=== PATIENT | female | born 1985 | race Caucasian/White ===

== ENCOUNTER 2016-03-12 01:16 | Inpatient (IN) | payer OTHER ==
[2016-03-12] MEDS ORDERED: Nalbuphine* 20 MG/ML 1 ML VIAL IM ONE (04:19)
[2016-03-12] MEDS ORDERED: Promethazine INJ(RESTRICTED)* 25 MG/ML 1 ML VIAL IM ONE (04:19)
[2016-03-12] MEDS ORDERED: Promethazine INJ(RESTRICTED)* 25 MG/ML 1 ML VIAL ONE (04:24)
[2016-03-12] MEDS ORDERED: Nalbuphine* 20 MG/ML 1 ML VIAL ONE (04:24)
[2016-03-12 08:43] LABS: Hematocrit 37 % (35-47); Mean Corpuscular HGB Conc 33 g/dl (31-36); Mean Corpuscular Hemoglobin 27 pg (27-31); Mean Corpuscular Volume 83 fL (80-97); Mean Platelet Volume 7 um3 (7.4-10.4); Red Blood Count 4.42 10^6/ul (4.0-5.4); Red Cell Distribution Width 15 % (10.5-15); White Blood Count 11.6 10^3/ul (3.5-10.8)
[2016-03-12] MEDS ORDERED: OBEPIDURAL* 250 ML ONE (08:43)
[2016-03-12] MEDS ORDERED: Famotidine TAB* 20 MG PO PRN (09:13)
[2016-03-12] MEDS ORDERED: Phenylephrine IV* 40 MCG/ML 10 ML SYRINGE IV PUSH PRN (09:13)
[2016-03-12] MEDS ORDERED: EPHEDrine (Pressors)* 50 MG/ML VIAL IV PUSH PRN (09:13)
[2016-03-12] MEDS ORDERED: Sodium Citrate/Citric Acid* 15 ML UDC PO PRN (09:13)
[2016-03-12] MEDS ORDERED: Oxytocin in LR* 20 UNITS/1,000 ML BAG IVPB ONE (11:09)
[2016-03-12] MEDS ORDERED: Oxytocin in LR* 20 UNITS/1,000 ML BAG IVPB SCH ×2 (12:00→18:00)
[2016-03-12] MEDS: OBEPIDURAL* 250 ML EPIDURAL SCH (15:44)
[2016-03-12] MEDS ORDERED: Mineral Oil Sterile, TOPICAL* 25 ML BTL ONE (16:06)
[2016-03-12] MEDS ORDERED: oxyCODONE/Acetamin 5/325 MG* TAB PO PRN (17:40)
[2016-03-12] MEDS ORDERED: Acetaminophen TAB* 325 MG PO PRN (17:40)
[2016-03-12] MEDS: Witch Hazel PAD* JAR TOPICAL PRN (18:29)
[2016-03-12] MEDS: Dibucaine 1% 28.35 GM TUBE PR PRN (18:29)
[2016-03-12] MEDS: Ibuprofen TAB* 600 MG PO PRN (18:29)
[2016-03-13] MEDS: Docusate CAP* 100 MG PO SCH ×4 (01:49→20:17)
[2016-03-13] MEDS: Ibuprofen TAB* 600 MG PO PRN ×4 (01:49→20:17)
[2016-03-13 07:39] LABS: Hematocrit 31 % (35-47); Hemoglobin 10.2 g/dl (12.0-16.0); Mean Corpuscular HGB Conc 33 g/dl (31-36); Mean Corpuscular Hemoglobin 27 pg (27-31); Mean Corpuscular Volume 83 fL (80-97); Mean Platelet Volume 7 um3 (7.4-10.4); Red Blood Count 3.77 10^6/ul (4.0-5.4); Red Cell Distribution Width 15 % (10.5-15)
[2016-03-13] MEDS: Ferrous Gluconate TAB* 324 MG TAB PO SCH (19:19)
[2016-03-13] MEDS ORDERED: RHO D Immune Globulin (HUMAN)* 300 MCG = 1,500 I.U. INJ IM ONE (20:03)
[2016-03-14] MEDS: Ibuprofen TAB* 600 MG PO PRN ×2 (02:36→08:47)
[2016-03-14] MEDS: OBEPIDURAL* 250 ML EPIDURAL SCH (05:17)
[2016-03-14] MEDS: Ferrous Gluconate TAB* 324 MG TAB PO SCH (05:17)
[2016-03-14 08:05] VITALS: BP 119/78
[2016-03-14] MEDS: Docusate CAP* 100 MG PO SCH (08:47)
[2016-03-14] MEDS: Dibucaine 1% 28.35 GM TUBE PR PRN (08:48)
[2016-03-14] MEDS: Witch Hazel PAD* JAR TOPICAL PRN (08:48)
== END 2016-03-14 11:42 | disposition home or self-care (01) | DRG 560 ==
LOC: MCHOBOUT 01:16 → MCHOB 01:52
PROVIDERS: ADMIT Midwife; ATTEND Nurse Practitioner
PROC: 10907ZC Drainage of Amniotic Fluid, Therapeutic from Products of Conception, Via Natural or Artificial Opening (ICD-10-PCS; principal; 2016-03-12)
PROC: 10E0XZZ Delivery of Products of Conception, External Approach (ICD-10-PCS; 2016-03-12)
PROC: 0W8NXZZ Division of Female Perineum, External Approach (ICD-10-PCS; 2016-03-12)
DX: O48.0 Post-term pregnancy (principal); Z37.0 Single live birth; Z3A.40 40 weeks gestation of pregnancy
CPT/HCPCS: 36415; 85025; 85461; 86850; 86900; 86901; A9270-GY; J2300; J2550; J2790

== ENCOUNTER 2017-09-22 12:28 | Emergency (ER) | payer BC, OTHER ==
[2017-09-22 12:50] VITALS: BP 136/69
[2017-09-22] MEDS ORDERED: Ketorolac INJ* 60 MG/2 ML VIAL IM ONE (13:01)
--- NOTE | 2017-09-22 13:01 | UC ---
Abdominal Pain Female HPI - HPI Summary HPI Summary: Pt is a 32 y/o F c/o L flank pain radiating to L abdomen onset at 0200. Pain ranked as an 8/10 and described as "excruciating". Has PMHx: Kidney stones 2 years ago, states today's sx are similar. Associated Sx: nausea onset this AM, vaginal itching, dysuria. 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 Pt thinks she had a UTI 9 days with sx semi-resolving. - History of Current Complaint Chief Complaint: UCGU Stated Complaint: BACK/ABD PAIN Time Seen by Provider: 09/22/17 12:43 Hx Obtained From: Patient, Medical Records Hx Last Menstrual Period: 08/24/17 Onset/Duration: Sudden Onset - 0200 this date, Lasting Hours, Still Present Timing: Constant Severity Currently: Moderate Pain Intensity: 6 Pain Scale Used: 0-10 Numeric Location: Other - L flank Radiates: Yes Radiates to: Other - L abd Character: Other - Heavy and "excruciating" Associated Signs and Symptoms: Positive: Nausea, Other: - vaginal itching, dysuria Allergies/Adverse Reactions: Allergies Allergy/AdvReac Type Severity Reaction Status Date / Time soy Allergy Hives/Diff. Verified 09/22/17 13:41 Breathing/I tching PMH/Surg Hx/FS Hx/Imm Hx Previously Healthy: No Endocrine History: Other Other Endocrine History: neg: DM GI/ History: Kidney Stones - Surgical History Surgical History: None - Family History Family History: Neg: GI problems - Social History Occupation: Employed Part-time Lives: With Family Alcohol Use: Rare Alcohol Amount: 2 glasses wine Substance Use Type: None Smoking Status (MU): Never Smoked Tobacco - Immunization History Most Recent Influenza Vaccination: fall 2015 Most Recent Tetanus Shot: 2016 Most Recent Pneumonia Vaccination: never Review of Systems Gastrointestinal: Abdominal Pain - L Flank radiating to L abd, Nausea Genitourinary: Dysuria, Vaginal/Penile Itching All Other Systems Reviewed And Are Negative: Yes Physical Exam - Summary Physical Exam Summary: VITAL SIGNS: Reviewed. GENERAL: Patient is a well-developed and nourished female. Patient is not in any acute respiratory distress. Pt is distressed secondary to pain. HEAD AND FACE: Normocephalic EYES: PERRLA, EOMI x 2. EARS: Hearing grossly intact. MOUTH: Oropharynx within normal limits. NECK: Supple, trachea is midline, no adenopathy, no JVD, no carotid bruit. CHEST: Symmetric, no tenderness at palpation LUNGS: Clear to auscultation bilaterally. No wheezing or crackles. CVS: Regular rate and rhythm, S1 and S2 present, no murmurs or gallops appreciated. ABDOMEN: Soft, non-tender. Bowel sounds are normal. No abdominal abnormal pulsations. BACK: L CVA tenderness EXTREMITIES: Full ROM in all major joints, no edema, no cyanosis or clubbing. NEURO: Alert and oriented x 3. No acute neurological deficits. Speech is normal and follows commands. SKIN: Dry and warm Triage Information Reviewed: Yes Vital Signs: Initial Vital Signs Temp 99.2 F 09/22/17 12:39 Pulse 74 09/22/17 12:39 Resp 18 09/22/17 12:39 BP 136/69 09/22/17 12:39 Pulse Ox 100 09/22/17 12:39 Vital Signs Reviewed: Yes Abd Pain Female Course/Dx - Course Course Of Treatment: Patient is a 32-year-old female with left flank pain. The patient has history of kidney stones. The pain is 8 out of 10. The patient is here in town for the pain and she will be going to the emergency department for further workup and management I will rule out kidney stone versus pyelonephritis. Patient declined ambulance transport. The patient was found to have increased BP in UC. The patient will follow up with PCP for better control of BP. - Differential Dx/Diagnosis Provider Diagnoses: Flank pain rule out kidney stones versus pyelonephritis Discharge - Sign-Out/Discharge Documenting (check all that apply): Patient Departure - D/C - Discharge Plan Condition: Stable Disposition: HOME-RECOMMEND TO ED Patient Education Materials: Flank Pain (ED) Referrals: No Primary Care Phys,NOPCP [Primary Care Provider] - [facility] [Outside] Additional Instructions: Patient will be discharged to the emergency department for further workup and management. She declined ambulance transport. FOLLOW UP WITH YOUR PRIMARY CARE PROVIDER WITHIN ONE WEEK FOR HIGH BLOOD PRESSURE NOTED TODAY. RETURN TO Urgent Care or ED FOR ANY WORSENING OR NEW SYMPTOMS.
== END 2017-09-22 13:12 | disposition home health service (06) ==
LOC: UCEAST 12:28
DX: M54.5 Low back pain (principal); R11.0 Nausea; L29.2 Pruritus vulvae; R30.0 Dysuria; Z87.442 Personal history of urinary calculi; Z87.440 Personal history of urinary (tract) infections
CPT/HCPCS: 81003; 84702; 87077; 87086; 87186; 96372; 99202; G0463; J1885

== ENCOUNTER 2017-09-22 13:33 | Emergency (ER) | payer BC ==
[2017-09-22 14:31] LABS: Urine Appearance Clear; Urine Blood 2+ (Negative); Urine Color Straw; Urine Ketones Negative (Negative); Urine Protein Negative (Negative); Urine Red Blood Cell Absent (Absent); Urine Specific Gravity 1.002 (1.010-1.030); Urine Urobilinogen Negative (Negative); Urine White Blood Cell Trace(0-5/hpf) (Absent)
--- NOTE | 2017-09-22 15:31 | RAD ---
INDICATION: LEFT side flank pain. Kidney stone protocol. History of urolithiasis. COMPARISON: February 26, 2014 CT TECHNIQUE: Multidetector CT images were obtained from the lung bases to the ischial tuberosities. Evaluation of the viscera is limited without IV contrast. Multiplanar reformation. REPORT: Unremarkable visualized inferior thorax. The unenhanced liver, gallbladder, pancreas, and spleen are unremarkable. No CT abnormality of the unopacified upper GI, small bowel, retrocecal appendix, or colon. Negative for ascites, free air, or significant hernias. Normal adrenal glands. 2 mm calyceal stone upper pole RIGHT kidney. A few punctate 1 -- 2 mm stones at the lower pole calyces of the LEFT kidney. 0.3 cm maximum dimension calcification at the RIGHT pelvis may represent a distal RIGHT ureteral stone approximate 3 cm from the ureterovesicular junction however assessment is limited due to paucity of retroperitoneal fat in this patient. The calcification is new compared with the 2013 exam. The differential includes a phlebolith. Negative for hydronephrosis. Unremarkable largely decompressed urinary bladder as well as the anteverted uterus and bilateral adnexal regions. Negative for lymphadenopathy. Normal diameter abdominal aorta and iliac arteries. Physiologic distention of the IVC. Negative for suspicious osseous lesions. IMPRESSION: #. Normal appendix documented. #. Small nonobstructing calyceal stones at both kidneys. Negative for hydronephrosis. #. 0.3 cm maximum dimension calcification at the RIGHT pelvis may represent a nonobstructing distal ureteral stone or phlebolith. The finding is new compared with the 2014 exam.
[2017-09-22 16:49] LABS: ABS Basophils 0.1 10^3/ul (0-0.2); ABS Eosinophils 0.2 10^3/ul (0-0.6); ABS Lymphocytes 3.2 10^3/ul (1.0-4.8); ABS Monocytes 0.9 10^3/ul (0-0.8); ABS Neutrophils 8.8 10^3/ul (1.5-7.7); ABS Nucleated RBC 0 10^3/ul; Eosinophil % 1.3 % (0-6); Hematocrit 42 % (35-47); Hemoglobin 14.5 g/dl (12.0-16.0); Lymphocyte % 24.3 % (25-47); Mean Corpuscular HGB Conc 35 g/dl (31-36); Mean Corpuscular Hemoglobin 32 pg (27-31); Mean Corpuscular Volume 91 fL (80-97); Nucleated Red Blood Cells % 0; Platelet Count 314 10^3/ul (150-450); Red Blood Count 4.61 10^6/ul (4.00-5.40); Red Cell Distribution Width 13 % (10.5-15); White Blood Count 13.1 10^3/ul (3.5-10.8)
[2017-09-22 17:06] LABS: EGFR Non-African American 75.4 (>60)
--- NOTE | 2017-09-22 17:31 | ED ---
Back Pain - HPI Summary HPI Summary: This patient is a 32 year old F presenting to [facility] with a chief complaint of left sided, severe, sharp plank pain that has wrapped around to abd since last night 09/21/17. Pt went to , and she thinks sx from kidney stone. Pt endorses pain improved after medication, but is coming back and gaining acuity now. PMHx kidney stones. - History of Current Complaint Chief Complaint: EDFlankPain Stated Complaint: FLANK PAIN Time Seen by Provider: 09/22/17 17:07 Hx Obtained From: Patient Hx Last Menstrual Period: 08/24/17 Onset/Duration: Gradual Onset Onset/Duration: Started Hours Ago Timing: Constant Severity Initially: Severe Severity Currently: Mild Pain Intensity: 2 Pain Scale Used: 0-10 Numeric Character: Sharp Aggravating Symptom(s): Movement Alleviating Symptom(s): OTC Meds Associated Signs And Symptoms: Positive: Abdominal Pain, Flank Pain. Negative: Fever - Allergies/Home Medications Allergies/Adverse Reactions: Allergies Allergy/AdvReac Type Severity Reaction Status Date / Time soy Allergy Hives/Diff. Verified 09/22/17 13:41 Breathing/I tching PMH/Surg Hx/FS Hx/Imm Hx Endocrine/Hematology History: Denies: Hx Diabetes, Hx Systemic Lupus Erythematosus Cardiovascular History: Denies: Hx Congestive Heart Failure, Hx Hypertension History: Reports: Hx Kidney Stones, Hx Renal Disease - KIDNEY STONES Denies: Hx Dialysis Musculoskeletal History: Denies: Hx Rheumatoid Arthritis - Cancer History Hx Chemotherapy: No Infectious Disease History: No Infectious Disease History: Denies: Traveled Outside the [place] in Last 30 Days - Social History Alcohol Use: Rare Alcohol Amount: 2 glasses wine Substance Use Type: Reports: None Smoking Status (MU): Never Smoked Tobacco Review of Systems Negative: Fever Positive: Abdominal Pain Positive: flank pain, pain Positive: Myalgia - BACK PAIN All Other Systems Reviewed And Are Negative: Yes Physical Exam - Summary Physical Exam Summary: Appearance: The patient is well-nourished in no apparent distress and in no acute pain. Skin: The skin is warm and dry and skin color reflects adequate perfusion. HEENT: The head is normocephalic and atraumatic. The pupils are equal and reactive. The conjunctivae are clear and without drainage. Nares are patent and without drainage. Mouth reveals moist mucous membranes and the throat is without erythema and exudate. The external ears are intact. The ear canals are patent and without drainage. The tympanic membranes are intact. Neck: The neck is supple with full range of motion and non-tender. There are no carotid bruits. There is no neck vein distension. Respiratory: Chest is non-tender. Lungs are clear to auscultation and breath sounds are symmetrical and equal. Cardiovascular: Heart is regular rate and rhythm. There is no murmur or rub auscultated. There is no peripheral edema and pulses are symmetrical and equal. Abdomen: The abdomen is soft and non-tender. There are normal bowel sounds heard in all four quadrants and there is no organomegaly palpated. Musculoskeletal: There left CVA tenderness noted. Extremities are non-tender with full range of motion. There is good capillary refill. There is no peripheral edema or calf tenderness elicited. Neurological: Patient is alert and oriented to person, place and time. The patient has symmetrical motor strength in all four extremities. Cranial nerves are grossly intact. Deep tendon reflexes are symmetrical and equal in all four extremities. Psychiatric: The patient has an appropriate affect and does not exhibit any anxiety or depression. Triage Information Reviewed: Yes Vital Signs On Initial Exam: Initial Vitals Temp Pulse Resp BP Pulse Ox 97.6 F 66 15 125/89 100 09/22/17 13:38 09/22/17 13:38 09/22/17 13:38 09/22/17 13:38 09/22/17 13:38 Vital Signs Reviewed: Yes Diagnostics - Vital Signs Vital Signs Temp Pulse Resp BP Pulse Ox 09/22/17 15:37 98.6 F 58 18 126/77 99 09/22/17 13:38 97.6 F 66 15 125/89 100 - Laboratory Lab Results: Lab Results 09/22/17 09/22/17 09/22/17 Range/Units 14:01 16:39 16:39 WBC 13.1 H (3.5-10.8) 10^3/ul RBC 4.61 (4.00-5.40) 10^6/ul Hgb 14.5 (12.0-16.0) g/dl Hct 42 (35-47) % MCV 91 (80-97) fL MCH 32 H (27-31) pg MCHC 35 (31-36) g/dl RDW 13 (10.5-15) % Plt Count 314 (150-450) 10^3/ul MPV 7.0 L (7.4-10.4) um3 Neut % (Auto) 66.6 (38-83) % Lymph % (Auto) 24.3 L (25-47) % [place] % (Auto) 7.0 (0-7) % Eos % (Auto) 1.3 (0-6) % Baso % (Auto) 0.8 (0-2) % Absolute Neuts (auto) 8.8 H (1.5-7.7) 10^3/ul Absolute Lymphs (auto) 3.2 (1.0-4.8) 10^3/ul Absolute Monos (auto) 0.9 H (0-0.8) 10^3/ul Absolute Eos (auto) 0.2 (0-0.6) 10^3/ul Absolute Basos (auto) 0.1 (0-0.2) 10^3/ul Absolute Nucleated RBC 0 10^3/ul Nucleated RBC % 0 Sodium 138 (135-145) mmol/L Potassium 4.0 (3.5-5.0) mmol/L Chloride 102 (101-111) mmol/L Carbon Dioxide 29 (22-32) mmol/L Anion Gap 7 (2-11) mmol/L BUN 12 (6-24) mg/dL Creatinine 0.88 (0.51-0.95) mg/dL Est GFR ( Amer) 91.3 (>60) Est GFR (Non-Af Amer) 75.4 (>60) BUN/Creatinine Ratio 13.6 (8-20) Glucose 94 (70-100) mg/dL Lactic Acid (0.5-2.0) mmol/L Calcium 9.4 (8.6-10.3) mg/dL Total Bilirubin 0.50 (0.2-1.0) mg/dL AST 15 (13-39) U/L ALT 9 (7-52) U/L Alkaline Phosphatase 68 (34-104) U/L C-Reactive Protein < 1.00 (<8.01) mg/L Total Protein 7.2 (6.4-8.9) g/dL Albumin 4.3 (3.2-5.2) g/dL Globulin 2.9 (2-4) g/dL Albumin/Globulin Ratio 1.5 (1-3) Beta HCG, Quant < 0.60 mIU/mL Urine Color Straw Urine Appearance Clear Urine pH 6.0 (5-9) Ur Specific [place] 1.002 L (1.010-1.030) Urine Protein Negative (Negative) Urine Ketones Negative (Negative) Urine Blood 2+ A (Negative) Urine Nitrate Negative (Negative) Urine Bilirubin Negative (Negative) Urine Urobilinogen Negative (Negative) Ur Leukocyte Esterase Trace A (Negative) Urine WBC (Auto) Trace(0-5/hpf) (Absent) Urine RBC (Auto) Absent (Absent) Ur Squamous Epith Cells Present A (Absent) Urine Bacteria 1+ A (Absent) Urine Glucose Negative (Negative) 09/22/17 Range/Units 16:39 WBC (3.5-10.8) 10^3/ul RBC (4.00-5.40) 10^6/ul Hgb (12.0-16.0) g/dl Hct (35-47) % MCV (80-97) fL MCH (27-31) pg MCHC (31-36) g/dl RDW (10.5-15) % Plt Count (150-450) 10^3/ul MPV (7.4-10.4) um3 Neut % (Auto) (38-83) % Lymph % (Auto) (25-47) % [place] % (Auto) (0-7) % Eos % (Auto) (0-6) % Baso % (Auto) (0-2) % Absolute Neuts (auto) (1.5-7.7) 10^3/ul Absolute Lymphs (auto) (1.0-4.8) 10^3/ul Absolute Monos (auto) (0-0.8) 10^3/ul Absolute Eos (auto) (0-0.6) 10^3/ul Absolute Basos (auto) (0-0.2) 10^3/ul Absolute Nucleated RBC 10^3/ul Nucleated RBC % Sodium (135-145) mmol/L Potassium (3.5-5.0) mmol/L Chloride (101-111) mmol/L Carbon Dioxide (22-32) mmol/L Anion Gap (2-11) mmol/L BUN (6-24) mg/dL Creatinine (0.51-0.95) mg/dL Est GFR ( Amer) (>60) Est GFR (Non-Af Amer) (>60) BUN/Creatinine Ratio (8-20) Glucose (70-100) mg/dL Lactic Acid 0.6 (0.5-2.0) mmol/L Calcium (8.6-10.3) mg/dL Total Bilirubin (0.2-1.0) mg/dL AST (13-39) U/L ALT (7-52) U/L Alkaline Phosphatase (34-104) U/L C-Reactive Protein (<8.01) mg/L Total Protein (6.4-8.9) g/dL Albumin (3.2-5.2) g/dL Globulin (2-4) g/dL Albumin/Globulin Ratio (1-3) Beta HCG, Quant mIU/mL Urine Color Urine Appearance Urine pH (5-9) Ur Specific [place] (1.010-1.030) Urine Protein (Negative) Urine Ketones (Negative) Urine Blood (Negative) Urine Nitrate (Negative) Urine Bilirubin (Negative) Urine Urobilinogen (Negative) Ur Leukocyte Esterase (Negative) Urine WBC (Auto) (Absent) Urine RBC (Auto) (Absent) Ur Squamous Epith Cells (Absent) Urine Bacteria (Absent) Urine Glucose (Negative) Result Diagrams: 09/22/17 16:39 09/22/17 16:39 Lab Statement: Any lab studies that have been ordered have been reviewed, and results considered in the medical decision making process. - CT A/P CT Interpretation: Positive (See Comments) CT Interpretation Completed By: Radiologist - #. Normal appendix documented. # . Small nonobstructing calyceal stones at both kidneys. Negative for hydronephrosis. #. 0.3 cm maximum dimension calcification at the RIGHT pelvis may represent a nonobstructing distal ureteral stone or phlebolith. The finding is new compared with the [address] Lynch has reviewed this report. Back Pain Course/Dx - Course Course Of Treatment: Ms. Marin presented with several hours of left flank pain. She went to the [facility] was severe pain and was given a shot of Toradol and presents with improved pain. CT shows a small left UVJ stone that is not obstructing and her UA is equivocal. For that reason I will give her antibiotics as well as standard treatment for kidney stone and discharged her in stable condition. - Diagnoses Provider Diagnoses: Kidney stone Discharge - Sign-Out/Discharge Documenting (check all that apply): Patient Departure - discharge - Discharge Plan Condition: Stable Disposition: HOME Prescriptions: HYDROcodone/ACETAMIN 5-325 MG* [[place] 5-325 TAB*] 1 tab PO Q6H PRN #20 tab MDD 4 PRN Reason: Pain Nitrofurantoin Monohyd/M-Cryst [Macrobid 100 mg Capsule] 100 mg PO BID #10 cap Tamsulosin CAP* [Flomax CAP*] 0.4 mg PO DAILY #7 cap Patient Education Materials: Kidney Stones (ED) Referrals: Iggy Arias MD [Medical Doctor] - 3 Days Additional Instructions: RETURN TO EMERGENCY DEPARTMENT FOR ANY NEW OR WORSENING SYMPTOMS. - Billing Disposition and Condition Condition: STABLE Disposition: Home
[2017-09-22 17:39] VITALS: BP 118/69
== END 2017-09-22 17:38 | disposition home or self-care (01) ==
LOC: ED 13:33
DX: N20.0 Calculus of kidney (principal); Z87.442 Personal history of urinary calculi
CPT/HCPCS: 36415; 74176; 80053; 81003; 81015; 83605; 84702; 85025; 86140; 99283

== ENCOUNTER 2017-11-09 15:57 | Emergency (ER) | payer BC ==
[2017-11-09 16:30] VITALS: BP 145/98
--- NOTE | 2017-11-09 17:04 | UC ---
Respiratory Complaint HPI - HPI Summary HPI Summary: 32 year old female female presents with 3 day history of productive cough for thick yellow sputum. Associated with some mild SOB, chest wall and abdominal tenderness with coughing. Denies fever, chills, ear pain, ear drainage, nasal congestion, yellow nasal drainage, sinus pressure, post-nasal drip, sore throat , abdominal pain, nausea, vomiting, or diarrhea. History of Crohn's managed with Humira. - History of Current Complaint Chief Complaint: UCRespiratory Stated Complaint: URI Time Seen by Provider: 11/09/17 16:47 Hx Obtained From: Patient Hx Last Menstrual Period: one week ago ?: No Onset/Duration: Gradual Onset Severity Currently: Moderate Pain Intensity: 5 Character: Cough: Productive, Sputum Description: - Thick yellow Aggravating Factors: Deep Breaths Alleviating Factors: Nothing Associated Signs And Symptoms: Positive: Dyspnea - Mild, URI, Nasal Congestion, Hoarseness, Sinus Discomfort. Negative: Fever, Chills, Wheezing, Hemoptysis, Dizziness, Calf Pain, Calf Swelling, Edema - Allergies/Home Medications Allergies/Adverse Reactions: Allergies Allergy/AdvReac Type Severity Reaction Status Date / Time soy Allergy Hives/Diff. Verified 11/09/17 16:05 Breathing/I tching Home Medications: Home Medications Adalimumab [Humira] 40 mg INJ SEE INSTRUCTIONS 11/09/17 [History Confirmed 11/09] PMH/Surg Hx/FS Hx/Imm Hx GI/ History: Other Other GI/ History: Crohn's disease - Surgical History Surgical History: Yes - T&A - Family History Known Family History: Positive: Other Family History: Noncontributory - Social History Occupation: Employed Full-time Lives: With Family Alcohol Use: Occasionally Alcohol Amount: 2 glasses wine Substance Use Type: None Smoking Status (MU): Never Smoked Tobacco - Immunization History Most Recent Influenza Vaccination: fall 2015 Most Recent Tetanus Shot: 2016 Most Recent Pneumonia Vaccination: never Review of Systems Constitutional: Negative Skin: Negative Eyes: Negative ENT: Negative Respiratory: Shortness Of Breath, Cough Cardiovascular: Negative Gastrointestinal: Negative Is Patient Immunocompromised?: Yes All Other Systems Reviewed And Are Negative: Yes Physical Exam Triage Information Reviewed: Yes Appearance: Well-Appearing, No Pain Distress, Well-Nourished Vital Signs: Initial Vital Signs Temp 98.4 F 08/29/18 16:01 Pulse 76 11/09/17 16:01 Resp 18 11/09/17 16:01 BP 145/98 11/09/17 16:01 Pulse Ox 99 11/09/17 16:01 Vital Signs Reviewed: Yes Eyes: Positive: Conjunctiva Clear. Negative: Discharge ENT: Positive: Hearing grossly normal, Pharyngeal erythema - Mild with post- nasal drip. Tonsils surgically absent., TMs normal Neck: Positive: Supple, Nontender, No Lymphadenopathy Respiratory: Positive: Lungs clear, Normal breath sounds, No respiratory distress, No accessory muscle use Cardiovascular: Positive: RRR, No Murmur Neurological: Positive: Alert Skin Exam: Normal UC Diagnostic Evaluation - Laboratory O2 Sat by Pulse Oximetry: 99 Respiratory Course/Dx - Course Course Of Treatment: 32-year-old female presenting with a three-day history of occasionally productive cough for yellow sputum. Is associated with some mild chest wall and abdominal muscular pain especially with the cough and deep breath. Afebrile. She denies any other URI symptoms. Her symptoms are likely a viral bronchitis however patient is on Humira for Crohn's disease therefore I' m electing to cover her with azithromycin for potential bacterial infection. Also recommend symptomatic treatment and will provide her with a prescription for Tessalon Perles one every 8 hours as needed for cough. She does not have a primary care provider the moment therefore given her a referral to the physician referral Center to establish. - Differential Dx/Diagnosis Differential Diagnosis/HQI/PQRI: Bronchitis, Lower Resp Infection Provider Diagnoses: Acute bronchitis, elevated blood pressure reading Discharge - Sign-Out/Discharge Documenting (check all that apply): Patient Departure All imaging exams completed and their final reports reviewed: No Studies - Discharge Plan Condition: Stable Disposition: HOME Prescriptions: Azithromyxin MONICA (NF) [Z-Monica (Zithromax) 250 mg tabs #6] 2 tab PO .TODAY, THEN 1 DAILY #6 tab Benzonatate CAP* [Tessalon 100 MG CAP*] 100 mg PO TID PRN #30 cap PRN Reason: Cough Patient Education Materials: Acute Bronchitis (ED) Referrals: No Primary Care Phys,NOPCP [Primary Care Provider] - Additional Instructions: Take azithromycin 250 mg 2 tabs today then 1 tab a day for next 4 days. May use Tessalon Perles 1 cap every 8 hours as needed for cough. Contact the provider who manages your Humira to let them know you are being treated for brochitis and ask if they want you to continue with the next dose of Humira or to hold off until you are no longer having symptoms. Your blood pressure in the clinic today was mildly elevated. I would recommend that you establish with a primary care provider within the next 4 weeks to have this rechecked. You can contact Estelle Wilks at the physician [facility] at or for assistance in finding a provider. - Billing Disposition and Condition Condition: STABLE Disposition: Home
== END 2017-11-09 17:34 | disposition home or self-care (01) ==
LOC: UCEAST 15:57
DX: J20.9 Acute bronchitis, unspecified (principal); R03.0 Elevated blood-pressure reading, without diagnosis of hypertension; K50.90 Crohn's disease, unspecified, without complications; Z91.018 Allergy to other foods; Z79.899 Other long term (current) drug therapy
CPT/HCPCS: 99212; G0463

== ENCOUNTER 2020-06-24 12:19 | Inpatient (IN) ==
[2020-06-24] MEDS ORDERED: Buffered Lidocaine 1% SYRIN 1 ml INTRADERM ONE ×2 (12:31→13:18)
[2020-06-24] MEDS ORDERED: Lactated Ringers 1000 ml BAG 1,000 ML IV ONE ×2 (13:18→20:57)
[2020-06-24 14:36] LABS: Urine Benzodiazepine Screen None Detected (None Detect); Urine Cannabinoids Screen None Detected (None Detect); Urine Opiates Screen None Detected (None Detect)
[2020-06-24] MEDS: Lactated Ringers 1000 ml BAG 1,000 ML IV SCH ×2 (15:55→20:20)
[2020-06-24] MEDS ORDERED: Oxytocin in LR 20 UNITS/1,000 ML BAG IVPB SCH (16:00)
[2020-06-24 16:12] LABS: ABS Lymphocytes 1.9 10^3/ul (1.0-4.8); ABS Monocytes 0.5 10^3/ul (0-0.8); ABS Neutrophils 9.1 10^3/ul (1.5-7.7); Eosinophil % 0.3 %; Hematocrit 39 % (35-47); Hemoglobin 13.6 g/dL (12.0-16.0); Lymphocyte % 16.3 %; Mean Corpuscular HGB Conc 35 g/dL (31-36); Mean Corpuscular Hemoglobin 33 pg (27-31); Mean Corpuscular Volume 96 fL (80-97); Mean Platelet Volume 7.3 fL (7.4-10.4); Platelet Count 245 10^3/uL (150-450); Red Blood Count 4.11 10^6 /uL (3.70-4.87); Red Cell Distribution Width 13 % (10-15); White Blood Count 11.6 10^3/uL (3.5-10.8)
[2020-06-24] MEDS ORDERED: OBEPIDURAL 250 ML EPIDURAL ONE (20:13)
[2020-06-24] MEDS ORDERED: fentaNYL 100 mcg/2 ml 50 MCG/ML VIAL ONE (20:23)
[2020-06-24] MEDS ORDERED: Phenylephrine 40 mcg/mL 10mL (400mcg) SYRINGE IV PUSH PRN ×2 (20:57)
[2020-06-24] MEDS ORDERED: EPHEDrine (Pressors) 50 MG/ML VIAL IV PUSH PRN (20:57)
[2020-06-24] MEDS ORDERED: Sodium Citrate/Citric Acid LIQ 15 ML UDC PO PRN (20:57)
[2020-06-24] MEDS ORDERED: OBEPIDURAL 250 ML EPIDURAL SCH (21:00)
[2020-06-24] MEDS ORDERED: Lactated Ringers 1000 ml BAG 1,000 ML IV SCH (21:00)
[2020-06-24 21:26] LABS: Urine Appearance Clear; Urine Bilirubin Negative (Negative); Urine Blood 3+ (Negative); Urine Color Straw; Urine Glucose Negative (Negative); Urine Ketones Negative (Negative); Urine Nitrite Negative (Negative); Urine Protein Negative (Negative); Urine Specific Gravity 1.002 (1.002-1.030); Urine Urobilinogen Negative (Negative)
[2020-06-24 21:34] LABS: Urine Bacteria Absent (Absent); Urine Red Blood Cell Trace(0-2/hpf) (Absent); Urine Squamous Epithelial Cell Present (Absent); Urine White Blood Cell Trace(0-5/hpf) (Absent)
[2020-06-25] MEDS ORDERED: RHO D Immune Globulin (HUMAN) 300 MCG = 1,500 I.U. INJ IM PRN (03:07)
[2020-06-25] MEDS ORDERED: Witch Hazel PAD JAR TOPICAL PRN (03:07)
[2020-06-25] MEDS ORDERED: Dibucaine 1% OINT 28.35 GM TUBE PR PRN (03:07)
[2020-06-25] MEDS ORDERED: Glycerin ADULT 2.4 gm SUPP PR PRN (03:07)
[2020-06-25] MEDS ORDERED: Oxytocin in LR 20 UNITS/1,000 ML BAG IVPB SCH (04:00)
[2020-06-25] MEDS ORDERED: Lactated Ringers 1000 ml BAG 1,000 ML IV SCH (04:00)
[2020-06-26 07:02] LABS: ABS Basophils 0.1 10^3/ul (0-0.2); ABS Eosinophils 0.2 10^3/ul (0-0.6); ABS Lymphocytes 2.2 10^3/ul (1.0-4.8); ABS Monocytes 0.8 10^3/ul (0-0.8); ABS Neutrophils 7.4 10^3/ul (1.5-7.7); Eosinophil % 2.2 %; Hematocrit 37 % (35-47); Lymphocyte % 20.7 %; Mean Corpuscular HGB Conc 35 g/dL (31-36); Mean Corpuscular Hemoglobin 34 pg (27-31); Mean Corpuscular Volume 96 fL (80-97); Platelet Count 217 10^3/uL (150-450); Red Blood Count 3.89 10^6 /uL (3.70-4.87); Red Cell Distribution Width 13 % (10-15); White Blood Count 10.8 10^3/uL (3.5-10.8)
[2020-06-26 08:00] VITALS: BP 118/64
== END 2020-06-26 14:30 | disposition home or self-care (01) | DRG 560 ==
LOC: MCHOBOUT 12:19 → MCHOB 13:12
PROVIDERS: ADMIT Midwife; ATTEND Midwife